=== PATIENT | female | born 2000 | race Caucasian/White ===

== ENCOUNTER 2023-05-07 12:33 | Outpatient (CLI) | payer OTHER, SELFPAY | END 2023-05-07 12:34 | disposition home or self-care (01) | PROVIDERS: Visit Provider Nurse Practitioner Family | DX: R11.0 Nausea (principal); J02.0 Streptococcal pharyngitis | CPT/HCPCS: 80076 ==

== ENCOUNTER 2023-09-30 00:35 | Emergency (ER) | payer OTHER, SELFPAY ==
[2023-09-30 00:41] VITALS: BP 129/69; PULSE 78; RESP 18; TEMP 36.9; O2SAT 98; BMI 24.3
--- NOTE | 2023-09-30 00:49 | ED_ITS ---
HPI - General Adult General Chief complaint: Dental/Oral/Mouth Injury/Pain Stated complaint: swollen jaw Time Seen by Provider: 09/30/23 00:36 History of Present Illness HPI narrative: wisdom teeth out 2 months ago, starting 09/29 pain and swelling in jaw . tonight, jaw is a little more swollen on L side. denies any drainage or bleeding from extraction sites. also, c /o cold symptoms and congestions starting at the same time. no fevers at home. last took ibuprofen at 1030 AM. has talked to surgeon who did wisdom teeth removal, has an abo at pharmacy waiting but has not had the chance to pick it up. 23-year-old young woman presenting to the emergency department with complaint of left lower jaw swelling and ?discomfort?. Not so bad at rest but admittedly more tender when she was to push on it. No drainage the though had some blood she thought she was trying to irrigate at the left lower jaw site wisdom tooth extraction. Started to feel uncomfortable about 24 hours ago in this area. Has also incidentally had corresponding cold symptoms with congestion. Did have all wisdom teeth extracted a couple months ago with recurrent similar swelling treated with rounds of Medrol Dosepak and amoxicillin. Related Data Home Medications Medication Instructions Recorded Confirmed levonorgestrel 0.15 mg-ethinyl 1 tab PO QDAY 05/07/23 05/07/23 estradiol 0.03 mg tablet propranolol 20 mg tablet 20 mg PO BID PRN 05/07/23 05/07/23 Previous Rx's Medication Instructions Recorded amoxicillin 875 mg tablet 875 mg PO BID #20 tabs 05/07/23 Allergies Allergy/AdvReac Type Severity Reaction Status Date / Time No Known Drug Allergies Allergy Verified 05/07/23 12:21 Review of Systems Status of ROS: Reports: 6 or more systems reviewed and unremarkable except as noted in History and below [facility] Medical History Strep throat ?J02.0 - Streptococcal pharyngitis (ICD-10) Nausea ?R11.0 - Nausea (ICD-10) Social History Smoking Status: Never smoker Do you use any of these nicotine containing products: None Non-prescribed substance use: denies use Exam Narrative: Exam Narrative: Pleasant. NAD. Breathing easily. Skin is warm and dry. There is moderate soft swelling mildly tender without induration erythema or calor of the skin at the left mid mandible. She does not have cervical lymphadenopathy. No abnormality to the exam of the ear. Swelling does not extend back to the TMJ. Dentition looks in good repair. The left posterior dentition shows well covered site of extraction. I do not see inflammatory changes inside the mouth. There is no palpable stone and no inflammatory changes about the parotid duct/stoma. Const: Vital Signs, click to edit/add: Vital Signs - 24 hr 09/30/23 00:41 Temperature 98.4 F Pulse Rate [Right Pulse Oximeter] 78 Respiratory Rate 18 Blood Pressure [Ri ght Upper Arm] 129/69 Pulse Oximetry 98 Oxygen Delivery Me thod Room Air Documenting provider has reviewed patient's vital signs: yes Course Vital Signs Vital signs: Initial Vital Signs Temperature 98.4 F 09/30/23 00:41 Temperature Source Oral 09/30/23 00:41 Pulse Rate 78 09/30/23 00:41 Respiratory Rate 18 09/30/23 00:41 Blood Pressure 129/69 09/30/23 00:41 Blood Pressure Mean 89 09/30/23 00:41 Blood Pressure Position Sitting 09/30/23 00:41 Pulse Oximetry 98 09/30/23 00:41 Oxygen Delivery Method Room Air 09/30/23 00:41 Vital Signs Temperature 98.4 F 09/30/23 00:41 Pulse Rate 78 09/30/23 00:41 Respiratory Rate 18 09/30/23 00:41 Blood Pressure 129/69 09/30/23 00:41 Pulse Oximetry 98 09/30/23 00:41 Oxygen Delivery Method Room Air 09/30/23 00:41 Temperature 98.4 F 09/30/23 00:41 Pulse Rate 78 09/30/23 00:41 Respiratory Rate 18 09/30/23 00:41 Blood Pressure 129/69 09/30/23 00:41 Pulse Oximetry 98 09/30/23 00:41 Oxygen Delivery Method Room Air 09/30/23 00:41 Medical Decision Making MDM Narrative Medical decision making narrative: There is some swelling that could involve the parotid though would expected to be a little bit more posterior and more tense and more tender. Does not appear typical for a dental abscess. Is not tender enough. There is not cellulitic change. We did discuss treating with NSAIDs and/or steroid and possibly antibiotics. Apparently had received recurrent rounds of steroid and antibiotics in the postoperative course. Did discuss this case with colleague. Perhaps is related to this extraction and can occur quite sometime later spontaneous. Not exactly an abscess but collection of fluid that needs debridement/irrigation. Do have close follow-up with oral surgeon. Will be initiating amoxicillin in the interim. See patient discharge plan Discharge Plan Discharge Clinical Impression: Mandibular swelling Patient Disposition: Home w/ Parent or Adult Condition: Stable Additional Instructions: Can take up to 800 mg of ibuprofen or up to 1000 mg of acetaminophen per dose. These can be combined. Plan on keeping that appointment with your oral surgeon on Sunday. Amoxicillin from [facility]. Take 1000 mg of amoxicillin for the 1st dose. Return for uncontrolled pain, fever. Prescriptions: No Action propranolol 20 mg tablet 20 mg PO BID PRN levonorgestrel-ethinyl estrad 0.15-0.03 mg tablet 1 tab PO QDAY amoxicillin 875 mg tablet 875 mg PO BID Qty: 20 0RF Follow Up/Referrals: Provider,Not a Local [Referring] - Stand Alone Forms: [employer] Info Instructions
== END 2023-09-30 01:00 | disposition home or self-care (01) ==
PROVIDERS: Emergency Provider Family Medicine; PCP Family Medicine
DX: R68.84 Jaw pain (principal)
CPT/HCPCS: 99283; 99284

== ENCOUNTER 2024-11-18 00:55 | Emergency (ER) | payer BC, SELFPAY ==
[2024-11-18 01:03] VITALS: BP 151/81; PULSE 66; RESP 16; TEMP 36.4; O2SAT 100; BMI 23.7
--- NOTE | 2024-11-18 01:30 | ED.GENADULT ---
HPI - General Adult General Chief complaint: Unspecified Complaint, Adult Stated complaint: Low heart rate, started new med recently Time Seen by Provider: 11/18/24 01:07 Source: patient Mode of arrival: ambulatory Limitations: no limitations History of Present Illness HPI narrative: 24-year-old female presents to the emergency department with reported low heart rate documented on a new fitness tracker ring. Has not used a monitor like this in the past but does monitor her heart rate from time to time. She was at rest and her tracker alert her that her heart rate was 38. She did manually check her pulse and saw that this was the case. She was asymptomatic at the time. When she gets up and moves around, her heart rate improves, she remains asymptomatic. She does not have any exercise intolerance, shortness of breath, chest pain or other similar symptoms. She notes a little bit of dizziness which she describes as a vertigo type symptoms since starting a new antidepressant, sertraline 3 days ago. She called the nurse triage line and they advised her to come to the emergency department. She has no history of heart disease but has never had any workup or monitoring nor any indication to do so. 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 No recent illness or fevers. Only new medication is the recently started sertraline. She was on Lexapro a few years ago for about 2 years, stopped at 18 months ago. No other intoxication this evening. Past medical history notable for anxiety, denies any prior history of cardiac issues. No family history of premature coronary artery disease. Nonsmoker. ROS notable for the generalized and cardiac symptoms as above, otherwise denies times 12 systems. Related Data Home Medications ?Medication ?Instructions ?Recorded ?Confirmed levonorgestrel 0.15 mg-ethinyl 1 tab PO QDAY 05/07/23 11/18/24 estradiol 0.03 mg tablet propranolol 20 mg tablet 20 mg PO BID PRN 05/07/23 11/18/24 sertraline 25 mg tablet 25 mg PO DAILY 11/18/24 11/18/24 Allergies Allergy/AdvReac Type Severity Reaction Status Date / Time No Known Drug Allergies Allergy Verified 05/07/23 12:[address] [facility] Medical History Strep throat ?J02.0 - Streptococcal pharyngitis (ICD-10) Nausea ?R11.0 - Nausea (ICD-10) Social History Smoking Status: Never smoker Do you use any of these nicotine containing products: None Non-prescribed substance use: denies use Exam Const: Vital Signs, click to edit/add: Vital Signs - 24 hr 11/18/24 01:03 Temperature 97.6 F Pulse Rate [Pulse Oximeter] 66 Respiratory Rate 16 Blood Pressure [Ri ght Upper Arm] 151/81 H Pulse Oximetry 100 Oxygen Delivery Me thod Room Air Documenting provider has reviewed patient's vital signs: yes Common normals: no apparent distress General appearance: cooperative, comfortable and well kempt HENMT: Common normals: normocephalic Head and scalp: normocephalic Eye: Common normals: conjunctivae normal General eye: normal appearance of both eyes Conjunctiva: conjunctiva(e) normal Neck & C-Spine: General: normal visual inspection Resp: Common normals: normal respiratory effort, no use of accessory muscles and clear to auscultation bilaterally Effort & inspection: able to speak in complete sentences Auscultation: clear to auscultation bilaterally Cardio: Common normals: regular rate, regular rhythm, S1 normal heart sound, S2 normal heart sound, no gallops, no clicks and no murmurs Rate: regular rate Rhythm: regular rhythm Heart sounds: S1 normal and S2 normal Psych: Common normals: speech normal Appearance: well kempt Attitude: engaged Activity/motor behavior: appropriate eye contact Speech: normal speech Mood and affect: euthymic mood Insight: insight good Judgement: judgment good Skin: Common normals: no rashes or lesions noted General skin exam: no rashes or lesions noted Course Course ED Course: 24-year-old female with asymptomatic low heart rate at rest on fitness tracker, now asymptomatic, improves with movement. Did recently start sertraline, this is likely contributing to the mild bradycardia. This is not an uncommon phenomenon with these medications. EKG is performed, no signs of underlying heart block. Counseled patient on findings. This is not that abnormal for I young athlete to have a resting heart rate this low. We would be concerned if she had exertional symptoms, low heart rate with exercise or signs of electrical abnormality on her EKG. Resting heart rate at around 40 is not unexpected, is likely a couple points lower because of her recent medications. Heart rate was 60s in triage, high 50s at the time of my exam. No further workup is recommended. She does get appropriate primary care and guidance. I have advised her to continue her medication as prescribed, continue tracking her heart rate. Come to the ED if it is persistently below 30 or if any symptoms of low heart rate such as chest pain, significant shortness of breath or if she has exertionally low heart rate. She verbalizes understanding and agreement. Primary care follow-up in a couple weeks as is plan to recheck in on antidepressant use. Vital Signs Vital signs: Initial Vital Signs Temperature 97.6 F 11/18/24 01:03 Temperature Source Temporal Artery Scan 11/18/24 01:03 Pulse Rate 66 11/18/24 01:03 Respiratory Rate 16 11/18/24 01:03 Blood Pressure 151/81 H 11/18/24 01:03 Blood Pressure Mean 104 11/18/24 01:03 Blood Pressure Position Sitting 11/18/24 01:03 Pulse Oximetry 100 11/18/24 01:03 Oxygen Delivery Method Room Air 11/18/24 01:03 Vital Signs Temperature 97.6 F 11/18/24 01:03 Pulse Rate 66 11/18/24 01:03 Respiratory Rate 16 11/18/24 01:03 Blood Pressure 151/81 H 11/18/24 01:03 Pulse Oximetry 100 11/18/24 01:03 Oxygen Delivery Method Room Air 11/18/24 01:03 Temperature 97.6 F 11/18/24 01:03 Pulse Rate 66 11/18/24 01:03 Respiratory Rate 16 11/18/24 01:03 Blood Pressure 151/81 H 11/18/24 01:03 Pulse Oximetry 100 11/18/24 01:03 Oxygen Delivery Method Room Air 11/18/24 01:03 Medical Decision Making ECG Data Attestation: I personally reviewed and interpreted this ECG as follows: Prior ECG tracings: not available for review Interpretation: Sinus rhythm with a rate of 55. Normal intervals and axis otherwise. Good R-wave progression. No significant ST or T-wave abnormalities. Normal EKG. Discharge Plan Discharge Clinical Impression: Bradycardia Patient Disposition: Home w/ Parent or Adult Condition: Stable Instructions: Bradycardia (ED) Additional Instructions: As we discussed, for a young, healthy, athletic woman like herself, this heart rate is not concerning. I do wish there was a way to reset the parameters on your device to alert you below 30. The triage nurse will often tell you to come in if they do not have all of the information they need to make a good decision regarding your healthcare. I have the luxury of being able to review your EKG and see that you have no underlying electrical or structural issues with your heart. It can be very common for an athlete to have a resting heart rate in the high 30s or low 40s, not just asleep but even at rest. The new medication certainly does lower your heart rate slightly, typically about 3-10 beats. It is dose dependent meaning that the higher doses of the medication are likely to lower your heart rate more. It tends to only affect the resting heart rate and not athletic performance. Therefore, this mild change in baseline heart rate is not of concern. Mild dizziness can be common with starting the medication, I would give the medication 2-3 weeks before I judged the side effects, as often they do improve. I would like for you to continue wearing the heart rate monitor and tracking your resting heart rate. If it is running below 30 or persistently below 35 at rest, your physician should consider a different medication. If you notice low heart rate with activity, I would be more concerned. Continue your typical exercise and nutrition plan and keep any planned follow-up regarding management of this medication with your primary care doctor. Activity Level: No Restrictions Discharge Diet: Regular Prescriptions: No Action propranolol 20 mg tablet 20 mg PO BID PRN levonorgestrel-ethinyl estrad 0.15-0.03 mg tablet 1 tab PO QDAY sertraline 25 mg tablet 25 mg PO DAILY Follow Up/Referrals: Huyen Mcgarry DO [Primary Care Provider] - Stand Alone Forms: [employer] Info Instructions
== END 2024-11-18 01:43 | disposition home or self-care (01) ==
LOC: ED 01:37
PROVIDERS: Emergency Provider Family Medicine; PCP Family Medicine
DX: R00.1 Bradycardia, unspecified (principal)
CPT/HCPCS: 93005; 99283; 99284